=== PATIENT | female | born 1990 | race Hispanic/Latino ===

== ENCOUNTER 2023-01-31 12:09 | Outpatient (CLI) | payer OTHER | END 2023-01-31 12:10 | disposition home or self-care (01) | LOC: CSHULT 12:09 | PROVIDERS: ATTEND Family Medicine | DX: O09.892 Supervision of other high risk pregnancies, second trimester (principal); Z3A.17 17 weeks gestation of pregnancy | CPT/HCPCS: 76805 ==

== ENCOUNTER 2023-07-03 05:23 | Inpatient (IN) | payer MEDICAID, OTHER ==
[2023-07-02 11:35] LABS: Hematocrit 33.8 % (34.9-44.5); Hemoglobin 11.5 g/dL (12.0-15.5); Platelet Count 302 10x3/uL (150-450)
[2023-07-02 11:50] LABS: Syphilis Antibody Nonreactive (Nonreactive); Syphilis Antibody Index 0.07 S/CO (<1.00 Non-Reactive)
[2023-07-02 11:51] LABS: HBSAg Index 0.32 S/CO (0-0.99); Hep B Surf Ag Non-Reactive S/CO (NonReactive)
[2023-07-03] MEDS ORDERED: Tranexamic Acid 1,000 MG/10 ML VIAL IVP PRN (05:42)
[2023-07-03] MEDS ORDERED: CEFAZOLIN 2 GM in Sodium Chloride 0.9% 100 ML IVPB SCH (05:42)
[2023-07-03] MEDS ORDERED: Promethazine HCl 25 MG/ML VIAL IM PRN ×3 (05:42→10:39)
[2023-07-03] MEDS ORDERED: Carboprost 250 MCG/ML AMP IM PRN (05:42)
[2023-07-03] MEDS ORDERED: Bicitra 30 ML UDCUP PO PRN (05:42)
[2023-07-03] MEDS ORDERED: Lactated Ringer's 1,000 ML IV SCH (05:42)
[2023-07-03] MEDS ORDERED: Diphenoxylate HCl/Atropine Tablet PO PRN (05:42)
[2023-07-03] MEDS ORDERED: Ondansetron PF 4 MG/2 ML Vial IVP PRN ×4 (05:42→10:39)
[2023-07-03] MEDS ORDERED: Famotidine/PF 20 mg/2ml Vial SLOW IVP PRN (05:42)
[2023-07-03] MEDS ORDERED: Oxytocin 30 units/NS 500 ML 500 ML IV SCH ×2 (05:42→10:39)
[2023-07-03] MEDS ORDERED: Methylergonovine 0.2 MG/ML VIAL IM PRN (05:42)
[2023-07-03] MEDS ORDERED: Misoprostol 200 MCG TAB PR PRN (05:42)
[2023-07-03] MEDS ORDERED: hydrALAZINE 20 MG/ML VIAL SLOW IVP PRN ×2 (05:42→10:39)
[2023-07-03 06:24] VITALS: BMI 40.4
[2023-07-03] MEDS ORDERED: ePHEDrine Sulfate 50 MG/10 ML VIAL ONE (07:13)
[2023-07-03] MEDS ORDERED: Morphine PF 10 MG/10 ML VIAL ONE (07:13)
[2023-07-03] MEDS ORDERED: Ketorolac Tromethamine 30 MG (1 mL) VIAL ONE (07:13)
[2023-07-03] MEDS ORDERED: Ondansetron PF 4 MG/2 ML Vial ONE (07:13)
[2023-07-03] MEDS ORDERED: PHENYLEPHRINE-NS 100 MCG/ML 10 ML SYRINGE ONE (07:13)
[2023-07-03] MEDS ORDERED: Oxytocin 10 UNITS/ML VIAL ONE (07:13)
[2023-07-03] MEDS ORDERED: Phenylephrine 40 MG/NS 250 ML 250 ML ONE (07:13)
[2023-07-03] MEDS ORDERED: Erythromycin Base 0.5% Oint 1 GM TUBE ONE (08:26)
[2023-07-03] MEDS ORDERED: Phytonadione Neonatal 1 MG/0.5 ML AMP ONE (08:26)
[2023-07-03] MEDS ORDERED: Promethazine HCl 25 MG SUPP PR PRN (08:43)
[2023-07-03] MEDS ORDERED: diphenhydrAMINE 50 MG/ML VIAL IVP PRN (08:43)
[2023-07-03] MEDS ORDERED: Moisturizing Cream (Eucerin) 113 GM JAR TOP PRN (08:43)
[2023-07-03] MEDS ORDERED: Naloxone HCl 0.4 mg/ml Vial IV PRN (08:43)
[2023-07-03] MEDS ORDERED: Naloxone HCl 0.4 mg/ml Vial IVP PRN ×2 (08:43)
[2023-07-03] MEDS ORDERED: fentaNYL 50 mcg/mL 1 mL Vial SLOW IVP PRN (08:43)
[2023-07-03] MEDS ORDERED: Meperidine HCl/PF 25 MG (1 mL) VIAL SLOW IVP PRN (08:43)
[2023-07-03] MEDS ORDERED: Communication Order-Pharmacy FS SCH (08:45)
[2023-07-03] MEDS ORDERED: Bisacodyl 10 MG SUPP PR PRN (10:39)
[2023-07-03] MEDS ORDERED: diphenhydrAMINE 25 MG CAP PO PRN (10:39)
[2023-07-03] MEDS ORDERED: Simethicone Chewable 80 MG TAB PO PRN (10:39)
[2023-07-03] MEDS ORDERED: Boostrix 0.5 ML (Tdap) VIAL (>/=7 yrs of age) IM ONE (10:39)
[2023-07-03] MEDS ORDERED: Lanolin Ointment 7 GM TUBE TOP PRN (10:39)
[2023-07-03] MEDS ORDERED: Ferrous Sulfate 325 MG TAB PO SCH (12:00)
[2023-07-03] MEDS ORDERED: Docusate 100 MG CAP PO SCH (12:00)
[2023-07-03] MEDS ORDERED: Prenatal Vitamin 1 TAB PO SCH (12:00)
[2023-07-03] MEDS ORDERED: Sterile Water 10 ML ONE (13:25)
[2023-07-03] MEDS: Ketorolac Tromethamine 30 MG (1 mL) VIAL IVP SCH ×2 (14:44→21:51)
[2023-07-03] MEDS ORDERED: Ketorolac Tromethamine 30 MG (1 mL) VIAL IVP SCH (16:30)
[2023-07-03] MEDS ORDERED: Ketorolac Tromethamine 30 MG (1 mL) VIAL IVP PRN (16:35)
[2023-07-03] MEDS ORDERED: Meperidine HCl/PF 25 MG (1 mL) VIAL IM PRN (20:45)
[2023-07-04 05:16] LABS: Hematocrit 28.1 % (34.9-44.5); Hemoglobin 9.7 g/dL (12.0-15.5); Mean Corpuscular HGB CONC 34.5 g/dL (32.0-36.0); Mean Corpuscular Hemoglobin 29.8 pg (27.0-33.0); Mean Corpuscular Volume 86.5 fl (81.6-98.3); Mean Platelet Volume 9.6 fl (7.4-10.4); Platelet Count 232 10x3/uL (150-450); RBC Distribution Width 12.3 % (11.5-14.5); Red Blood Cell (RBC) Count 3.25 10x6/uL (3.90-5.03); White Blood Cell (WBC) Count 9.8 10x3/uL (3.5-10.5)
[2023-07-04] MEDS: Docusate 100 MG CAP PO SCH ×3 (08:07→21:52)
[2023-07-04] MEDS: HYDROcodone/Acetaminophen 5/325 mg Tablet PO PRN ×2 (08:08→21:52)
[2023-07-04] MEDS: Ferrous Sulfate 325 MG TAB PO SCH ×3 (08:08→21:58)
[2023-07-04] MEDS: Prenatal Vitamin 1 TAB PO SCH (08:08)
[2023-07-04] MEDS: Ketorolac Tromethamine 30 MG (1 mL) VIAL IVP SCH ×2 (09:36→09:42)
[2023-07-04] MEDS: Ibuprofen 800 MG TAB PO SCH (15:24)
[2023-07-05] MEDS: Ibuprofen 800 MG TAB PO SCH ×4 (05:11→22:42)
[2023-07-05] MEDS: HYDROcodone/Acetaminophen 5/325 mg Tablet PO PRN ×3 (08:28→20:56)
[2023-07-05] MEDS: Prenatal Vitamin 1 TAB PO SCH (08:28)
[2023-07-05] MEDS: Ferrous Sulfate 325 MG TAB PO SCH ×2 (08:28→20:56)
[2023-07-05] MEDS: Docusate 100 MG CAP PO SCH ×2 (08:28→20:56)
[2023-07-06] MEDS: HYDROcodone/Acetaminophen 5/325 mg Tablet PO PRN ×2 (06:09→12:17)
[2023-07-06] MEDS: Ibuprofen 800 MG TAB PO SCH (06:09)
[2023-07-06 07:52] VITALS: BP 105/62; TEMP 97.7
[2023-07-06] MEDS: Prenatal Vitamin 1 TAB PO SCH (08:32)
[2023-07-06] MEDS: Ferrous Sulfate 325 MG TAB PO SCH (08:32)
[2023-07-06] MEDS: Docusate 100 MG CAP PO SCH (08:32)
== END 2023-07-06 13:15 | disposition home or self-care (01) | DRG 788 ==
LOC: CSHLD 05:23 → CSHPP 10:30
PROVIDERS: ADMIT Family Medicine; ATTEND Family Medicine
PROC: 10D00Z1 Extraction of Products of Conception, Low, Open Approach (ICD-10-PCS; principal; 2023-07-03)
PROC: 3E0P05Z Introduction of Adhesion Barrier into Female Reproductive, Open Approach (ICD-10-PCS; 2023-07-03)
DX: O34.211 Maternal care for low transverse scar from previous cesarean delivery (principal); Z3A.39 39 weeks gestation of pregnancy; Z37.0 Single live birth; E66.9 Obesity, unspecified; O99.214 Obesity complicating childbirth
CPT/HCPCS: 36415; 51702; 85014; 85018; 85027; 85049; 86780; 86850; 86900; 86901; 87340; J1200; J1885; J2274; J2405; J2590; J3490; J7120; S0028